=== PATIENT | female | born 1955 | race Caucasian/White ===

== ENCOUNTER 2016-04-18 22:10 | Observation (INO) | payer OTHER ==
[2016-04-18] MEDS ORDERED: methylPREDNISolone SOD SUCCI 125 MG/2 ML VIAL IV STA (22:41)
[2016-04-18] MEDS ORDERED: SODIUM CHLORIDE 0.9% 1,000 ML IV STA (22:41)
[2016-04-18] MEDS ORDERED: IPRATROPIUM-ALBUTEROL 3 ML NEB INHALATION STA (22:41)
[2016-04-18] MEDS ORDERED: HYDROcodone/APAP 5-325MG 1 EACH TAB PO STA (22:42)
--- NOTE | 2016-04-18 22:43 | ED ---
General Adult HPI - General Chief complaint: Shortness of Breath Stated complaint: MATHEW Time Seen by Provider: 04/18/16 22:37 Source: patient, RN notes reviewed Mode of arrival: wheelchair Limitations: no limitations - History of Present Illness Initial comments: Patient is a pleasant 60-year-old female presenting to the emergency Department with complaints of difficulty in breathing. Symptoms started a couple of days ago and have progressively gotten worse. Patient does have cough with occasional white sputum. No fevers. No chest pain. Patient does request some pain medication for her chronic joint pain. Patient has had similar symptoms previously associated with COPD. - Related Data Home Medications Medication Instructions Recorded Confirmed Albuterol Nebulized [Ventolin 2.5 mg INHALATION RT-QID PRN 05/15/14 04/18/16 Nebulized] Calcium Carbonate [Calcium] 600 mg PO BID 05/03/15 04/18/16 Ergocalciferol [Vitamin D2 50,000 unit PO TH 05/03/15 04/18/16 (DRISDOL)] Multivitamins, Thera [Multivitamin] 1 tab PO DAILY 05/03/15 04/18/16 Albuterol Sulfate [Proair Hfa] 1 - 2 puff INHALATION RT-Q6H PRN 01/31/16 Apixaban [Eliquis] 2.5 mg PO BID 01/31/16 04/18/16 Cyanocobalamin [Vitamin B-12] 500 mcg PO DAILY 01/31/16 04/18/16 traZODone HCL 100 mg PO HS PRN 01/31/16 04/18/16 Folic Acid 1 mg PO DAILY 04/18/16 04/18/16 PARoxetine HCL [Paxil] 20 mg PO HS 04/18/16 04/18/16 Previous Rx's Medication Instructions Recorded HYDROcodone/APAP 7.5-325MG [[place] 1 tab PO Q6HR PRN #90 tab 04/04/16 7.5-325] Allergies Allergy/AdvReac Type Severity Reaction Status Date / Time No Known Allergies Allergy Verified 04/18/16 22:58 Review of Systems ROS Statement: Those systems with pertinent positive or pertinent negative responses have been documented in the HPI. ROS Other: All systems not noted in ROS Statement are negative. Constitutional: Denies: fever Eyes: Denies: eye pain ENT: Denies: ear pain Respiratory: Reports: cough, dyspnea Cardiovascular: Denies: chest pain Endocrine: Denies: fatigue Gastrointestinal: Denies: abdominal pain Genitourinary: Denies: dysuria Musculoskeletal: Denies: back pain Skin: Denies: rash Neurological: Denies: headache Past Medical History Past Medical History: Asthma, COPD, GERD/Reflux, Hyperlipidemia, Pneumonia, Pulmonary Embolus (PE), Respiratory Disorder Additional Past Medical History / Comment(s): ARHTRITIS RT HIP, MIGRAINES, left rotator cuff chronic, Osteoporosis History of Any Multi-Drug Resistant Organisms: None Reported Past Surgical History: Appendectomy, Orthopedic Surgery, Tubal Ligation Additional Past Surgical History / Comment(s): RT ANKLE COMPOUND FX/ DISLOCATION HAS X3 SX TO CORRECT, NO METAL LEFT IN PLACE, RT ROTATOR CUFF, RT KNEE BONE FRAGMENT REMOVED. Laser surgery on right rotator cuff., left rotator cuff and bone spur surgery Past Anesthesia/Blood Transfusion Reactions: No Reported Reaction Past Psychological History: Anxiety, Depression Additional Psychological History / Comment(s): NOT CURRENTLY TAKING ANY MEDS FOR LAST 4-5 YEARS. Smoking Status: Current every day smoker Past Alcohol Use History: None Reported Additional Past Alcohol Use History / Comment(s): STARTED SMOKING AT AGE 26, Past Drug Use History: None Reported - Past Family History Brother(s) Family Medical History: Cancer Father Family Medical History: Cancer, Coronary Artery Disease (CAD), Hyperlipidemia Additional Family Medical History / Comment(s): AT AGE 83, BRAIN CA.. AT AGE 81 DID A QUAD BYPASS. Mother Family Medical History: Dementia, Diabetes Mellitus Additional Family Medical History / Comment(s): AT AGE 74 General Exam Limitations: no limitations General appearance: alert, in no apparent distress Head exam: Present: atraumatic Eye exam: Present: normal appearance, PERRL ENT exam: Present: normal oropharynx Neck exam: Present: normal inspection Respiratory exam: Present: wheezes, rhonchi, decreased breath sounds Cardiovascular Exam: Present: regular rate, normal rhythm GI/Abdominal exam: Present: soft. Absent: tenderness Extremities exam: Present: normal inspection. Absent: pedal edema, calf tenderness Neurological exam: Present: alert Psychiatric exam: Present: normal affect, normal mood Skin exam: Absent: rash Course Vital Signs 04/18/16 04/18/16 04/18/16 22:13 22:48 23:07 Temperature 98.2 F Pulse Rate 79 82 Respiratory 18 20 Rate Blood Pressure 132/80 O2 Sat by Pulse 93 L Oximetry 04/18/16 23:15 Temperature Pulse Rate 84 Respiratory Rate Blood Pressure O2 Sat by Pulse Oximetry EKG Findings - EKG Comments: EKG Findings:: Normal sinus rhythm at 68. Normal intervals. Normal axis. normal ST-T. Medical Decision Making - Medical Decision Making Patient reexamined and is somewhat improved. Lungs with continued rhonchi and wheezing. Pulse ox 91-92% on room air. Patient updated on results and plan. Case discussed with Dr. Sheridan, who will admit for Dr. Madrigal. - Lab Data Result diagrams: 04/18/16 22:45 04/18/16 22:45 Lab Results 04/18/16 04/18/16 04/18/16 Range/Units 22:45 22:45 22:45 WBC 4.7 (3.8-10.6) k/uL RBC 4.04 (3.80-5.40) m/uL Hgb 13.5 (11.4-16.0) gm/dL Hct 39.6 (34.0-46.0) % MCV 97.9 (80.0-100.0) fL MCH 33.3 (25.0-35.0) pg MCHC 34.0 (31.0-37.0) g/dL RDW 13.0 (11.5-15.5) % Plt Count 178 (150-450) k/uL Neutrophils % 50 % Lymphocytes % 35 % Monocytes % 7 % Eosinophils % 5 % Basophils % 1 % Neutrophils # 2.3 (1.3-7.7) k/uL Lymphocytes # 1.6 (1.0-4.8) k/uL Monocytes # 0.3 (0-1.0) k/uL Eosinophils # 0.3 (0-0.7) k/uL Basophils # 0.1 (0-0.2) k/uL PT (9.0-12.0) sec INR (<1.1) APTT (22.0-30.0) sec Sodium 130 L (137-145) mmol/L Potassium 4.6 (3.5-5.1) mmol/L Chloride 94 L (98-107) mmol/L Carbon Dioxide 24 (22-30) mmol/L Anion Gap 12 mmol/L BUN 9 (7-17) mg/dL Creatinine 0.72 (0.52-1.04) mg/dL Est GFR (MDRD) Af Amer >60 (>60 ml/min/1.73 sqM) Est GFR (MDRD) Non-Af >60 (>60 ml/min/1.73 sqM) Glucose 87 (74-99) mg/dL Calcium 9.1 (8.4-10.2) mg/dL Total Bilirubin 0.4 (0.2-1.3) mg/dL AST 23 (14-36) U/L ALT 27 (9-52) U/L Alkaline Phosphatase 39 (38-126) U/L Total Creatine Kinase 94 (30-135) U/L CK-MB (CK-2) 2.5 H* (0.0-2.4) ng/mL CK-MB (CK-2) Rel Index 2.7 Troponin I <0.012 (0.000-0.034) ng/mL Total Protein 6.4 (6.3-8.2) g/dL Albumin 4.4 (3.5-5.0) g/dL 04/18/16 Range/Units 22:45 WBC (3.8-10.6) k/uL RBC (3.80-5.40) m/uL Hgb (11.4-16.0) gm/dL Hct (34.0-46.0) % MCV (80.0-100.0) fL MCH (25.0-35.0) pg MCHC (31.0-37.0) g/dL RDW (11.5-15.5) % Plt Count (150-450) k/uL Neutrophils % % Lymphocytes % % Monocytes % % Eosinophils % % Basophils % % Neutrophils # (1.3-7.7) k/uL Lymphocytes # (1.0-4.8) k/uL Monocytes # (0-1.0) k/uL Eosinophils # (0-0.7) k/uL Basophils # (0-0.2) k/uL PT 10.9 (9.0-12.0) sec INR 1.1 (<1.1) APTT 28.8 (22.0-30.0) sec Sodium (137-145) mmol/L Potassium (3.5-5.1) mmol/L Chloride (98-107) mmol/L Carbon Dioxide (22-30) mmol/L Anion Gap mmol/L BUN (7-17) mg/dL Creatinine (0.52-1.04) mg/dL Est GFR (MDRD) Af Amer (>60 ml/min/1.73 sqM) Est GFR (MDRD) Non-Af (>60 ml/min/1.73 sqM) Glucose (74-99) mg/dL Calcium (8.4-10.2) mg/dL Total Bilirubin (0.2-1.3) mg/dL AST (14-36) U/L ALT (9-52) U/L Alkaline Phosphatase (38-126) U/L Total Creatine Kinase (30-135) U/L CK-MB (CK-2) (0.0-2.4) ng/mL CK-MB (CK-2) Rel Index Troponin I (0.000-0.034) ng/mL Total Protein (6.3-8.2) g/dL Albumin (3.5-5.0) g/dL - Radiology Data Interpreted by me: Chest x-ray interpreted by myself shows hyperinflation without evidence of acute infiltrate. Disposition Clinical Impression: Acute exacerbation of chronic obstructive airways disease Disposition: ADMITTED IP TO THIS HOSP
[2016-04-18 22:51] LABS: Basophils # (A) 0.1 k/uL (0-0.2); Basophils % (A) 1 %; CH 34.2; Eosinophils # (A) 0.3 k/uL (0-0.7); Eosinophils % (A) 5 %; HCT 39.6 % (34.0-46.0); HDW 2.24; HGB 13.5 gm/dL (11.4-16.0); Luc # (Auto) 0.08; Luc % (Auto) 2; Lymphocytes # (A) 1.6 k/uL (1.0-4.8); Lymphocytes % (A) 35 %; MCH 33.3 pg (25.0-35.0); MCV 97.9 fL (80.0-100.0); Mean Platelet Volume 7.2; Monocytes # (A) 0.3 k/uL (0-1.0); Monocytes % (A) 7 %; Neutrophils # (A) 2.3 k/uL (1.3-7.7); Neutrophils % (A) 50 %; RBC 4.04 m/uL (3.80-5.40); WBC 4.7 k/uL (3.8-10.6); WBC (Perox) 4.73
[2016-04-18 23:01] LABS: ALT 27 U/L (9-52); AST 23 U/L (14-36); Alkaline Phosphatase 39 U/L (38-126); Anion Gap 12 mmol/L; Blood Urea Nitrogen 9 mg/dL (7-17); Calcium 9.1 mg/dL (8.4-10.2); Carbon Dioxide 24 mmol/L (22-30); Chloride 94 mmol/L (98-107); Glucose 87 mg/dL (74-99); Non-African American GFR(MDRD) >60 (>60 ml/min/1.73 sqM); Potassium 4.6 mmol/L (3.5-5.1); Sodium 130 mmol/L (137-145); Total Bilirubin 0.4 mg/dL (0.2-1.3); Total Protein 6.4 g/dL (6.3-8.2)
[2016-04-18 23:04] LABS: INR 1.1 (<1.1); Partial Thromboplastin Time 28.8 sec (22.0-30.0); Prothrombin Time 10.9 sec (9.0-12.0)
[2016-04-18 23:15] LABS: Creatine Kinase 94 U/L (30-135)
[2016-04-18] MEDS ORDERED: SODIUM CHLORIDE 0.9% 250 ML IV STA (23:20)
[2016-04-18 23:28] LABS: Troponin I <0.012 ng/mL (0.000-0.034)
[2016-04-18 23:38] LABS: Creatine Kinase MB 2.5 ng/mL (0.0-2.4)
[2016-04-19] MEDS ORDERED: IPRATROPIUM-ALBUTEROL 3 ML NEB INHALATION PRN (00:03)
[2016-04-19] MEDS ORDERED: traZODone HCL 100 MG TAB PO PRN (00:05)
[2016-04-19 01:04] VITALS: RESP 16
--- NOTE | 2016-04-19 02:15 | XR ---
EXAMINATION TYPE: XR chest 2V DATE OF EXAM: 04/18/2016 11:26 PM COMPARISON: 02/27/2016 HISTORY: Difficulty in breathing cough COPD asthma TECHNIQUE: Frontal and lateral views of the chest are obtained. FINDINGS: There is hyperinflation of lungs. There is no focal air space opacity, pleural effusion, or pneumoth orax seen. The cardiac silhouette size is within normal limits. Atherosclerotic calcification in the aortic arch. The osseous structures are intact. IMPRESSION: 1. No active lung infiltrates. 2. Chronic lung changes. 3. No significant interval change.
[2016-04-19] MEDS: HYDROcodone/APAP 7.5-325MG 1 EACH TAB PO PRN ×2 (04:16→10:31)
[2016-04-19] MEDS: methylPREDNISolone SOD SUCCI 125 MG/2 ML VIAL IV SCH ×2 (05:29→12:58)
[2016-04-19 07:17] LABS: Glucose,Whole Blood 122 mg/dL (75-99)
[2016-04-19] MEDS: IPRATROPIUM-ALBUTEROL 3 ML NEB INHALATION SCH ×2 (07:33→11:02)
[2016-04-19 07:48] VITALS: BP 128/84; TEMP 97.2
[2016-04-19] MEDS ORDERED: APIXABAN 2.5 MG TABLET PO SCH (09:00)
[2016-04-19 11:05] VITALS: PULSE 80
[2016-04-19 12:21] VITALS: BMI 16.2
[2016-04-19 12:39] LABS: Glucose,Whole Blood 132 mg/dL (75-99)
[2016-04-19] MEDS ORDERED: PARoxetine 20 MG TAB PO SCH (21:00)
--- NOTE | 2016-04-19 23:33 | P.HPIM ---
History of Present Illness H&P Date: 04/19/16 (DC summary as well) Chief Complaint: Difficulty breathing 60-year-old female with history of tobacco use and currently ongoing tobacco use comes into the hospital with difficulty in breathing for a week prior to admission. Patient stated that she noted initially a cough that progressively got worse over has been productive in nature with yellowish fluid phlegm. Patient was only using albuterol inhaler at home. Patient still smokes about 1- 2 cigarettes at home. Patient has never seen a director industrial nursing and was actually referred to Dr. Betancourt by the patient's primary care physician. Patient denies having any recent sick contacts does not recall have an influenza vaccine. Has not traveled in the recent times. At the time of my examination patient states that she has some difficulty breathing however is able to ambulate or 100 feet without any difficulty. Patient does have a cough however is not limiting her positionally or in regards to conversation. Review of Systems All systems: negative (Noted in HPI) Past Medical History Past Medical History: Asthma, COPD, GERD/Reflux, Hyperlipidemia, Pneumonia, Pulmonary Embolus (PE), Respiratory Disorder Additional Past Medical History / Comment(s): ARHTRITIS RT HIP, MIGRAINES, left rotator cuff chronic, Osteoporosis History of Any Multi-Drug Resistant Organisms: None Reported Past Surgical History: Appendectomy, Orthopedic Surgery, Tubal Ligation Additional Past Surgical History / Comment(s): RT ANKLE COMPOUND FX/ DISLOCATION HAS X3 SX TO CORRECT, NO METAL LEFT IN PLACE, RT ROTATOR CUFF, RT KNEE BONE FRAGMENT REMOVED. Laser surgery on right rotator cuff., left rotator cuff and bone spur surgery Past Anesthesia/Blood Transfusion Reactions: No Reported Reaction Past Psychological History: Anxiety, Depression Additional Psychological History / Comment(s): NOT CURRENTLY TAKING ANY MEDS FOR LAST 4-5 YEARS. Smoking Status: Former smoker Past Alcohol Use History: None Reported Additional Past Alcohol Use History / Comment(s): STARTED SMOKING AT AGE 26, Past Drug Use History: None Reported - Past Family History Brother(s) Family Medical History: Cancer Father Family Medical History: Cancer, Coronary Artery Disease (CAD), Hyperlipidemia Additional Family Medical History / Comment(s): AT AGE 83, BRAIN CA.. AT AGE 81 DID A QUAD BYPASS. Mother Family Medical History: Dementia, Diabetes Mellitus Additional Family Medical History / Comment(s): AT AGE 74 Medications and Allergies Home Medications Medication Instructions Recorded Confirmed Type Calcium Carbonate [Calcium] 600 mg PO BID 05/03/15 04/18/16 History Ergocalciferol [Vitamin D2 50,000 unit PO TH 05/03/15 04/18/16 History (DRISDOL)] Multivitamins, Thera [Multivitamin] 1 tab PO DAILY 05/03/15 04/18/16 History Apixaban [Eliquis] 2.5 mg PO BID 01/31/16 04/18/16 History Cyanocobalamin [Vitamin B-12] 500 mcg PO DAILY 01/31/16 04/18/16 History traZODone HCL 100 mg PO HS PRN 01/31/16 04/18/16 History Folic Acid 1 mg PO DAILY 04/18/16 04/18/16 History PARoxetine HCL [Paxil] 20 mg PO HS 04/18/16 04/18/16 History Allergies Allergy/AdvReac Type Severity Reaction Status Date / Time No Known Allergies Allergy Verified 04/18/16 22:58 Physical Exam Vitals: Vital Signs Temp Pulse Pulse Resp BP BP Pulse Ox 04/19/16 11:14 80 04/19/16 11:02 80 04/19/16 07:47 76 04/19/16 07:33 76 04/19/16 07:00 97.2 F L 62 16 128/84 94 L 04/19/16 01:01 97.9 F 64 16 134/74 100 04/19/16 00:08 97.9 F 70 18 114/80 98 Intake and Output 04/19/16 04/19/16 04/20/16 14:59 22:59 06:59 Other: Weight 47.174 kg Patient Weight 04/20/16 06:59 Weight 47.174 kg Exam Lungs good air entry trace wheezing appreciated no rhonchi appreciated good air movement Heart S1-S2 heart regular rate and rhythm no murmurs appreciated Abdomen is soft nontender no organomegaly Neurologically no focal motor or sensory deficits noted Pupils equal round and reactive light and accommodation neck is supple no JVD Results CBC & Chem 7: 04/18/16 22:45 04/18/16 22:45 Labs: Abnormal Lab Results - Last 24 Hours (Table) 04/19/16 04/19/16 Range/Units 07:15 12:37 POC Glucose (mg/dL) 122 H 132 H (75-99) mg/dL Thrombosis Risk Factor Assmnt - Choose All That Apply Any of the Below Risk Factors Present?: Yes Each Factor Represents 1 point: Abnormal pulmonary function (COPD), Age 41-60 years Other Risk Factors: Yes Each Risk Factor Represents 3 Points: History of DVT/PE Other congenital or acquired thrombophilia - If yes, enter type in comment: No Thrombosis Risk Factor Assessment Total Risk Factor Score: 5 Thrombosis Risk Factor Assessment Level: High Risk Assessment and Plan Plan: #1 mild to moderate exacerbation of COPD which needs to be appropriately diagnosed with pulmonary function tests. #2 history of pulmonary embolism #3 ongoing tobacco use. #4 history of hypertension #5 dyslipidemia Plan Patient was ambulated by me over 100 feet did not note any difficulty breathing. No desaturation is noted. Patient is recommended to follow up with Dr. Betancourt within next week. Patient will be discharged on a course of doxycycline, burst of prednisone for the next week, albuterol, Symbicort inhaler. Patient will benefit from having outpatient PFTs thereafter. This is a discharge summary as well.
== END 2016-04-19 14:50 | disposition home or self-care (01) ==
LOC: EC 22:10 → 4MS4W 04-19 00:02 → INTOOBSV 04-19 00:02
PROVIDERS: ADMIT Internal Medicine; ATTEND Internal Medicine
DX: J44.1 Chronic obstructive pulmonary disease with (acute) exacerbation (principal); F17.210 Nicotine dependence, cigarettes, uncomplicated; I10 Essential (primary) hypertension; E78.5 Hyperlipidemia, unspecified; F32.9 Major depressive disorder, single episode, unspecified; F41.9 Anxiety disorder, unspecified; G89.29 Other chronic pain; J45.909 Unspecified asthma, uncomplicated; K21.9 Gastro-esophageal reflux disease without esophagitis; M81.0 Age-related osteoporosis without current pathological fracture; G43.909 Migraine, unspecified, not intractable, without status migrainosus; M16.11 Unilateral primary osteoarthritis, right hip; Z86.711 Personal history of pulmonary embolism; Z79.01 Long term (current) use of anticoagulants; Z79.899 Other long term (current) drug therapy; Z83.3 Family history of diabetes mellitus; Z82.49 Family history of ischemic heart disease and other diseases of the circulatory system
CPT/HCPCS: 96361 ×3; 96374 ×2; 99285 ×2; 36415; 94640 ×3; 93005; 80053; 82550; 82553; 84484; 85025; 85610; 85730; 71020; G0378; J2930 ×2; 96376

== ENCOUNTER 2016-04-26 18:10 | Emergency (ER) | payer OTHER ==
[2016-04-26 18:55] VITALS: BP 118/77; PULSE 77; RESP 20; TEMP 98.2
[2016-04-26] MEDS ORDERED: HYDROmorphone 1 MG/ML 1 ML SYRINGE IM STA (19:58)
[2016-04-26] MEDS ORDERED: ACETAMINOPHEN TAB 500 MG TAB PO STA (20:00)
--- NOTE | 2016-04-26 20:00 | ED ---
General Adult HPI - General Chief complaint: Extremity Injury, Upper Stated complaint: LEFT SHOULDER, RT LEG, BACK PAIN Time Seen by Provider: 04/26/16 19:49 Source: patient Mode of arrival: wheelchair Limitations: no limitations - History of Present Illness Initial comments: This 60-year-old white female presents complaining of left shoulder pain. She has had this chronically. She had surgery on her left shoulder approximate 10 months ago. She denies any new injuries. She sees Dr. Tobar from orthopedics. She states that she cannot get in to see him for another month. She has had pain ever since her surgery and prior. She has done some minimal lifting. She was taking [place] but has not taken any in the past 3 weeks. She has utilize a sling at times. She states that she cannot take ibuprofen as she is on a blood thinner. She has tried Tylenol at times without much relief. She 's gone through physical therapy in the past. She has not followed up with her primary physician in this regard. She has not followed up with pain management. No other complaints or modifying factors. - Related Data Home Medications Medication Instructions Recorded Confirmed Calcium Carbonate [Calcium] 600 mg PO BID 05/03/15 04/26/16 Ergocalciferol [Vitamin D2 50,000 unit PO TH 05/03/15 04/26/16 (DRISDKAYLEIGH)] Multivitamins, Thera [Multivitamin] 1 tab PO DAILY 05/03/15 04/26/16 Apixaban [Eliquis] 2.5 mg PO BID 01/31/16 04/26/16 Cyanocobalamin [Vitamin B-12] 500 mcg PO DAILY 01/31/16 04/26/16 traZODone HCL 100 mg PO HS PRN 01/31/16 04/26/16 Folic Acid 1 mg PO DAILY 04/18/16 04/26/16 PARoxetine HCL [Paxil] 20 mg PO HS 04/18/16 04/26/16 Previous Rx's Medication Instructions Recorded Albuterol Nebulized [Ventolin 2.5 mg INHALATION RT-QID PRN 30 04/19/16 Nebulized] Days Albuterol Sulfate [Proair Hfa] 1 - 2 puff INHALATION RT-Q6H PRN 04/19/16 #1 hfa.[email or web address].[email or web address] Doxycycline Hyclate 100 mg PO BID #10 tab 04/19/16 Ipratropium-Albuterol Nebulize 3 ml INHALATION RT-Q4H PRN #2 04/19/16 [Duoneb 0.5 mg-3 mg/3 ml Soln] ampul.neb traMADol HCl [Ultram] 50 - 100 mg PO Q6H PRN #8 tab 04/26/16 Allergies Allergy/AdvReac Type Severity Reaction Status Date / Time No Known Allergies Allergy Verified 04/26/16 19:22 Review of Systems ROS Statement: Those systems with pertinent positive or pertinent negative responses have been documented in the HPI. ROS Other: All systems not noted in ROS Statement are negative. Past Medical History Past Medical History: Asthma, COPD, GERD/Reflux, Hyperlipidemia, Pneumonia, Pulmonary Embolus (PE), Respiratory Disorder Additional Past Medical History / Comment(s): ARHTRITIS RT HIP, MIGRAINES, left rotator cuff chronic, Osteoporosis History of Any Multi-Drug Resistant Organisms: None Reported Past Surgical History: Appendectomy, Orthopedic Surgery, Tubal Ligation Additional Past Surgical History / Comment(s): RT ANKLE COMPOUND FX/ DISLOCATION HAS X3 SX TO CORRECT, NO METAL LEFT IN PLACE, RT ROTATOR CUFF, RT KNEE BONE FRAGMENT REMOVED. Laser surgery on right rotator cuff., left rotator cuff and bone spur surgery Past Anesthesia/Blood Transfusion Reactions: No Reported Reaction Past Psychological History: Anxiety, Depression Additional Psychological History / Comment(s): NOT CURRENTLY TAKING ANY MEDS FOR LAST 4-5 YEARS. Smoking Status: Former smoker Past Alcohol Use History: None Reported Additional Past Alcohol Use History / Comment(s): STARTED SMOKING AT AGE 26, Past Drug Use History: None Reported - Past Family History Brother(s) Family Medical History: Cancer Father Family Medical History: Cancer, Coronary Artery Disease (CAD), Hyperlipidemia Additional Family Medical History / Comment(s): AT AGE 83, BRAIN CA.. AT AGE 81 DID A QUAD BYPASS. Mother Family Medical History: Dementia, Diabetes Mellitus Additional Family Medical History / Comment(s): AT AGE 74 General Exam - General Exam Comments Initial Comments: GENERAL: The patient is well nourished and well hydrated. VITAL SIGNS: Heart rate, blood pressure, respiratory rate reviewed as recorded in nurse's notes. EYES: Pupils are round and reactive. Extraocular movements are intact. No conjunctival / lid redness or swelling. ENT: No external evidence of injury, swelling, or ecchymosis. Airway is patent. Throat is clear. NECK: Nontender. No swelling or evidence of injury. No subcutaneous emphysema. Trachea is midline. No thyroid mass. HEART: Regular rate and rhythm. Good peripheral pulses. LUNGS/CHEST: Breath sounds clear and equal bilaterally. No rales, rhonchi, or wheezes. No ecchymosis, subcutaneous emphysema, or tenderness. ABDOMEN: Abdomen soft without tenderness. No palpable masses or organomegaly. No peritoneal signs. No abdominal wall swelling or ecchymosis. EXTREMITIES: There is mild tenderness diffusely to the left shoulder. There is no swelling. There is pain with any degree of movement of her left shoulder. This is much decreased if distracted. Normal muscle tone and function. No thoracolumbar tenderness. NEUROLOGIC: Sensation is grossly intact. Cranial nerve exam reveals face is symmetrical, tongue is midline, speech is clear. SKIN: No abrasions or ecchymosis is noted. No induration or masses noted. PSYCHIATRIC: Alert and oriented. Appropriate behavior and judgment. Limitations: no limitations Course Vital Signs 04/26/16 18:53 Temperature 98.2 F Pulse Rate 77 Respiratory 20 Rate Blood Pressure 118/77 O2 Sat by Pulse 98 Oximetry Medical Decision Making - Medical Decision Making The patient was seen and examined. It appears that she has a chronic pain condition and she is informed that she should be following up with her primary physician for chronic pain issues and if not then she should see a chronic pain management physician. She states that she has difficulty seeing specialists due to insurance reasons. She states that she needs something now for the pain as it is severe. I order her Dilaudid intramuscularly. The nurse asks her if she has a ride and the patient says that she has a ride. The nurse relates to her that they must physically see the person present in the room prior to giving the narcotic. Upon knowing this, the patient relates that she does not have a ride. The Dilaudid is canceled due to the patient lying to us and it is felt as though she may have some culture motives in regard to pain and drug- seeking. I do order 1000 mg of Tylenol orally. It is reinforced that she is not to come to the emergency department for chronic pain issues. Disposition Clinical Impression: Chronic left shoulder pain Disposition: HOME SELF-CARE Condition: Good Prescriptions: traMADol HCl [Ultram] 50 - 100 mg PO Q6H PRN #8 tab PRN Reason: Pain Referrals: Ravindra Damon MD [Primary Care Provider] - 1-2 days Time of Disposition: 20:04
--- NOTE | 2016-04-26 20:06 | ED ---
Disposition Clinical Impression: Chronic left shoulder pain Disposition: HOME SELF-CARE Condition: Good Instructions: Chronic Pain (ED) Prescriptions: traMADol HCl [Ultram] 50 - 100 mg PO Q6H PRN #8 tab PRN Reason: Pain Referrals: Raivndra Damon MD [Primary Care Provider] - 1-2 days
== END 2016-04-26 20:32 | disposition home or self-care (01) ==
LOC: EC 18:10
DX: G89.29 Other chronic pain (principal); M25.512 Pain in left shoulder; F41.9 Anxiety disorder, unspecified; F32.9 Major depressive disorder, single episode, unspecified; Z79.01 Long term (current) use of anticoagulants; Z86.711 Personal history of pulmonary embolism; Z87.891 Personal history of nicotine dependence; Z79.899 Other long term (current) drug therapy
CPT/HCPCS: 99283

== ENCOUNTER 2016-04-27 17:10 | Emergency (ER) | payer OTHER ==
[2016-04-27 17:17] VITALS: TEMP 98.3
--- NOTE | 2016-04-27 17:41 | ED ---
General Adult HPI - General Chief complaint: Extremity Problem,Nontraumatic Stated complaint: left shoulder pain Time Seen by Provider: 04/27/16 17:28 Source: patient, EMS, RN notes reviewed Mode of arrival: EMS Limitations: no limitations - History of Present Illness Initial comments: 60-year-old female presents emergency Department with chronic pain. Patient states she has pain all over but greatest on left shoulder, low back. Patient states that she has chronic shoulder pain in which she's had surgery by Dr. Tobar. Patient was seen here in emergency department yesterday for pain medication was given tramadol. Patient states that she does see pain management here. Patient states that she also has been taken narcotics in the past for chronic pain. Patient denies any trauma. Patient states that she has low back pain which she's had in the past. She states that she was being worked up for this by pain management. Patient denies bowel, bladder incontinence or retention. Denies any saddle anesthesias or lower sure paresthesias. Patient states that she felt like her leg was negative elbow she is able to ambulate with no difficulty. Patient denies any focal weakness. Denies any headache, dizziness, blurred vision, chest pain or shortness breath. Patient has no other complaints. - Related Data Home Medications Medication Instructions Recorded Confirmed Calcium Carbonate [Calcium] 600 mg PO BID 05/03/15 04/27/16 Ergocalciferol [Vitamin D2 50,000 unit PO TH 05/03/15 04/27/16 (DRISDOL)] Multivitamins, Thera [Multivitamin] 1 tab PO DAILY 05/03/15 04/27/16 Apixaban [Eliquis] 2.5 mg PO BID 01/31/16 04/27/16 Cyanocobalamin [Vitamin B-12] 500 mcg PO DAILY 01/31/16 04/27/16 traZODone HCL 100 mg PO HS PRN 01/31/16 04/27/16 Folic Acid 1 mg PO DAILY 04/18/16 04/27/16 PARoxetine HCL [Paxil] 20 mg PO HS 04/18/16 04/27/16 Albuterol Sulfate [Proair Hfa] 2 puff INHALATION RT-Q6H PRN 04/27/16 04/27/16 Previous Rx's Medication Instructions Recorded Ipratropium-Albuterol Nebulize 3 ml INHALATION RT-Q4H PRN #2 04/19/16 [Duoneb 0.5 mg-3 mg/3 ml Soln] ampul.neb Allergies Allergy/AdvReac Type Severity Reaction Status Date / Time No Known Allergies Allergy Verified 04/27/16 17:44 Review of Systems ROS Statement: Those systems with pertinent positive or pertinent negative responses have been documented in the HPI. ROS Other: All systems not noted in ROS Statement are negative. Past Medical History Past Medical History: Asthma, COPD, GERD/Reflux, Hyperlipidemia, Pneumonia, Pulmonary Embolus (PE), Respiratory Disorder Additional Past Medical History / Comment(s): ARHTRITIS RT HIP, MIGRAINES, left rotator cuff chronic, Osteoporosis History of Any Multi-Drug Resistant Organisms: None Reported Past Surgical History: Appendectomy, Orthopedic Surgery, Tubal Ligation Additional Past Surgical History / Comment(s): RT ANKLE COMPOUND FX/ DISLOCATION HAS X3 SX TO CORRECT, NO METAL LEFT IN PLACE, RT ROTATOR CUFF, RT KNEE BONE FRAGMENT REMOVED. Laser surgery on right rotator cuff., left rotator cuff and bone spur surgery Past Anesthesia/Blood Transfusion Reactions: No Reported Reaction Past Psychological History: Anxiety, Depression Additional Psychological History / Comment(s): NOT CURRENTLY TAKING ANY MEDS FOR LAST 4-5 YEARS. Smoking Status: Former smoker Past Alcohol Use History: None Reported Additional Past Alcohol Use History / Comment(s): STARTED SMOKING AT AGE 26, Past Drug Use History: None Reported - Past Family History Brother(s) Family Medical History: Cancer Father Family Medical History: Cancer, Coronary Artery Disease (CAD), Hyperlipidemia Additional Family Medical History / Comment(s): AT AGE 83, BRAIN CA.. AT AGE 81 DID A QUAD BYPASS. Mother Family Medical History: Dementia, Diabetes Mellitus Additional Family Medical History / Comment(s): AT AGE 74 General Exam Limitations: no limitations General appearance: alert, in no apparent distress Neck exam: Present: normal inspection, full ROM. Absent: tenderness, meningismus, lymphadenopathy Respiratory exam: Present: normal lung sounds bilaterally. Absent: respiratory distress, wheezes, rales, rhonchi, stridor Cardiovascular Exam: Present: regular rate, normal rhythm, normal heart sounds. Absent: systolic murmur, diastolic murmur, rubs, gallop, clicks GI/Abdominal exam: Present: soft, normal bowel sounds. Absent: distended, tenderness, guarding, rebound, rigid Extremities exam: Present: other (Left shoulder slight decreased range of motion which is chronic., Neurovascular intact equal strength There is surgical scars noted. Lower extremity strength equal bilaterally neurovascular intact) Back exam: Present: full ROM, tenderness (Minimal left lower ), paraspinal tenderness, other (Normal lower extremity strength normal straight leg raise ). Absent: vertebral tenderness Neurological exam: Present: alert, oriented X3, CN II-XII intact, reflexes normal. Absent: motor sensory deficit Course Vital Signs 04/27/16 04/27/16 17:15 19:10 Temperature 98.3 F 98.3 F Pulse Rate 77 61 Respiratory 19 16 Rate Blood Pressure 124/73 126/69 O2 Sat by Pulse 94 L 100 Oximetry Medical Decision Making - Medical Decision Making 60-year-old female presented for chronic pain. Patient's medical records thoroughly reviewed. Patient's was initially was reviewed and the patient was found to be seeking medication. Patient was given Tylenol, tramadol upon discharge. Patient requested multiple rounds of narcotic pain medications. I did initially aspiration on initial interview if she took any pain medicines. She states that she didn't. Patient's maps does show that she felt 90 tablets of Isabella approximately 20 days ago. Patient states that she has taken all his pain medications and she now states that she is not here for pain meds. Patient has a chronic condition which she states is chronic and she's had no injuries. Patient has chronic left shoulder pain which she sees Dr. Tobar for. She states that she has back pain. Patient x-ray showed no acute abnormality. I did explain that she may need physical therapy which he'll be written by her primary care physician or orthopedist surgeon. She agrees this plan patient will be discharged with no further pain medications Disposition Clinical Impression: Chronic left shoulder pain, Chronic pain, Back pain Disposition: HOME SELF-CARE Condition: Stable Instructions: Chronic Pain (ED) Additional Instructions: Follow-up with your primary care physician, orthopedic surgeon or pain management as directed.Please return to the Emergency Department if symptoms worsen or any other concerns. Time of Disposition: 19:19
--- NOTE | 2016-04-27 18:51 | XR ---
EXAMINATION TYPE: XR lumbosacral spine min 4V DATE OF EXAM: 04/27/2016 6:21 PM COMPARISON: February 27, 2016 HISTORY: Pain, worse on the left TECHNIQUE: 5 views FINDINGS: There is no spinal malalignment. There is no scoliosis. There is mild/moderate multilevel d egenerative facet change and mild multilevel degenerative disc change. No focal bony lesions. The salbador tebral segments height are all maintained. No incidental soft tissue findings. IMPRESSION: No acute process.
[2016-04-27 19:11] VITALS: BP 126/69; PULSE 61; RESP 16
== END 2016-04-27 19:25 | disposition home or self-care (01) ==
LOC: EC 17:10
DX: G89.29 Other chronic pain (principal); M25.512 Pain in left shoulder; M54.5 Low back pain; F41.9 Anxiety disorder, unspecified; F32.9 Major depressive disorder, single episode, unspecified; Z86.711 Personal history of pulmonary embolism; Z79.01 Long term (current) use of anticoagulants; Z79.899 Other long term (current) drug therapy; Z87.891 Personal history of nicotine dependence
CPT/HCPCS: 72110; 99284

== ENCOUNTER 2016-05-01 17:46 | Emergency (ER) | payer OTHER ==
[2016-05-01 17:57] VITALS: RESP 16
--- NOTE | 2016-05-01 18:36 | ED ---
General Adult HPI - General Chief complaint: Fall Stated complaint: Fall Time Seen by Provider: 05/01/16 18:02 Source: patient, EMS, RN notes reviewed, old records reviewed Mode of arrival: ambulatory Limitations: no limitations - History of Present Illness Initial comments: Chief complaint and history of present illness a 60-year-old female here because she's afraid of the fact that she is also much weight, she has alcohol problems chronic pain medication problems. States today when she woke up she had tingling to her feet bilaterally. Within the hour after eating and getting around or moving the tingling goes away. She says that she stood up today and felt as though she couldn't stop stay up because the tingling and then the tingling improved but she fell to the floor. States she may have bumped her head she is on L Oquist because of a PE. The patient then said she is depressed and suicidal. The psychiatric nurse. - Related Data Home Medications Medication Instructions Recorded Confirmed Calcium Carbonate [Calcium] 600 mg PO BID 05/03/15 05/01/16 Ergocalciferol [Vitamin D2 50,000 unit PO TH 05/03/15 05/01/16 (DRISDOL)] Multivitamins, Thera [Multivitamin] 1 tab PO DAILY 05/03/15 05/01/16 Apixaban [Eliquis] 2.5 mg PO BID 01/31/16 05/01/16 Cyanocobalamin [Vitamin B-12] 500 mcg PO DAILY 01/31/16 05/01/16 traZODone HCL 100 mg PO HS PRN 01/31/16 05/01/16 Folic Acid 1 mg PO DAILY 04/18/16 05/01/16 PARoxetine HCL [Paxil] 20 mg PO HS 04/18/16 05/01/16 Albuterol Sulfate [Proair Hfa] 2 puff INHALATION RT-Q6H PRN 04/27/16 05/01/16 Previous Rx's Medication Instructions Recorded Ipratropium-Albuterol Nebulize 3 ml INHALATION RT-Q4H PRN #2 04/19/16 [Duoneb 0.5 mg-3 mg/3 ml Soln] ampul.neb Allergies Allergy/AdvReac Type Severity Reaction Status Date / Time No Known Allergies Allergy Verified 05/01/16 18:31 Review of Systems ROS Statement: Those systems with pertinent positive or pertinent negative responses have been documented in the HPI. Review of systems. No complaint of headache or visual acuity changes. No complaint of neck pain but she said that she did possibly bump her head no bruises noted. Denying any chest pain she has chronic left shoulder pain she's had surgery on that shoulder. Denies being short of breath does have a history of COPD and a smoker. No complaint of any pelvic pain. On-again off-again tingling to her feet currently gone. Able to move her feet legs and upper extremities. Answering questions appropriately. Seems depressed because of her problems with alcohol she did drink today but initially denied and also states that her daughter threw away her prescription for pain pills and hopes to help her. Patient was here seeking medications in the last several days. Past medical problems significant for COPD, GERD, hyperlipidemia, pneumonia, PE on L Oquist, arthritis and hip area. Surgeries left shoulder rotator cuff, Fracture Repair Right Ankle. Bilateral Tubal Ligation, Appendectomy. Family History Multiple Cancers her brother and father both had brain cancer. Other members of that cirrhosis and Alzheimer's. Patient denies any ALLERGIES. Initially denied drinking any alcohol and admitted to drinking alcohol today and states she's not alcoholic and needs help. Patient smokes. Also states she is addicted to pain medications ROS Other: All systems not noted in ROS Statement are negative. Past Medical History Past Medical History: Asthma, COPD, GERD/Reflux, Hyperlipidemia, Pneumonia, Pulmonary Embolus (PE), Respiratory Disorder Additional Past Medical History / Comment(s): ARHTRITIS RT HIP, MIGRAINES, left rotator cuff chronic, Osteoporosis History of Any Multi-Drug Resistant Organisms: None Reported Past Surgical History: Appendectomy, Orthopedic Surgery, Tubal Ligation Additional Past Surgical History / Comment(s): RT ANKLE COMPOUND FX/ DISLOCATION HAS X3 SX TO CORRECT, NO METAL LEFT IN PLACE, RT ROTATOR CUFF, RT KNEE BONE FRAGMENT REMOVED. Laser surgery on right rotator cuff., left rotator cuff and bone spur surgery Past Anesthesia/Blood Transfusion Reactions: No Reported Reaction Past Psychological History: Anxiety, Bipolar, Depression Additional Psychological History / Comment(s): NOT CURRENTLY TAKING ANY MEDS FOR LAST 4-5 YEARS. Smoking Status: Current every day smoker Past Alcohol Use History: None Reported Additional Past Alcohol Use History / Comment(s): STARTED SMOKING AT AGE 26, Past Drug Use History: None Reported - Past Family History Brother(s) Family Medical History: Cancer Father Family Medical History: Cancer, Coronary Artery Disease (CAD), Hyperlipidemia Additional Family Medical History / Comment(s): AT AGE 83, BRAIN CA.. AT AGE 81 DID A QUAD BYPASS. Mother Family Medical History: Dementia, Diabetes Mellitus Additional Family Medical History / Comment(s): AT AGE 74 General Exam - General Exam Comments Initial Comments: General: The patient is awake and alert, states she is depressed and a near suicidal. States she is an alcoholic and has trouble with narcotics. States her feet were tingling and she fell. She is given pain medication en route. States she wants help. Vital signs show temperature 98.7 pulse 75 respiratory rate 16 also ask 96% room air blood pressure 124/74. Minimally elevated systolic noted patient will be following up with a physician in the next week. Patient is extremely thin weighing approximately 92 pounds Eye: Pupils are equal, round and reactive to light, extra-ocular movements are intact ; there is normal conjunctiva bilaterally. No signs of icterus. Ears, nose, mouth and throat: States she bumped her head no apparent loss of consciousness no bruising or pain found on the head. There are moist mucous membranes. Neck: Denies significant neck pain but she states she did bump her head. She is on L Oquist for pulmonary embolus. Cardiovascular: There is a regular rate and rhythm. No murmur, rub or gallop is appreciated. Respiratory: Lungs are clear to auscultation, respirations are non-labored, breath sounds are equal. No wheezes, stridor, rales, or rhonchi. Gastrointestinal: Soft, non-distended, non-tender abdomen . There is no rebound or guarding present. No CVA tenderness. Bowel sounds are unremarkable. Back: Reports chronic back pain. Denies any new back pain with the fall today. Musculoskeletal: Normal ROM, no tenderness, There is no pedal edema. There is no calf tenderness or swelling. Able wiggle her toes move her ankles neurovascular status appears to be intact of the foot. Tingling comes and goes currently gone. Neurological: CN II-XII intact, There are no obvious motor or sensory deficits. Coordination appears grossly intact. Speech is normal. Reports on-again off-again tingling to her feet. Usually after she eats it goes away. Skin: Skin is warm and dry and no rashes or lesions are noted. Pale Psychiatric: History depression and anxiety. Initially denied alcohol use and then stated that she is not alcoholic. Limitations: no limitations Course Vital Signs 05/01/16 05/01/16 17:47 20:59 Temperature 98.7 F Pulse Rate 75 72 Respiratory 16 16 Rate Blood Pressure 124/74 118/68 O2 Sat by Pulse 96 97 Oximetry Medical Decision Making - Medical Decision Making Medical decision making; white count is 9 hemoglobin 13 hematocrit 39. Potassium 4.5 with a BUN 14 creatinine 0.9 and GFR greater than 60. The patient 's drug triage was positive for opiates. The patient reports she's not taking an opiate for a month. She also denied drinking any alcohol her breath alcohol level was 0.16. When it is re-checked at approximately 9 PM EPS will be notified for consultation. X-ray of the left shoulder was done and reviewed by radiologist his impression is; no fracture or dislocation. There is a screw related to reconstructive surgery at the greater tuberosity of the humerus. Glenohumeral joint is intact. There is some widening of the before meals joint space. This could be postsurgical. Impression; previous surgery. There is a partial resection of the lateral and of the clavicle. No acute bony abnormality. Surgery is new compared to old exam. As read by Dr. Asif CT the brain and cervical spine were done and reviewed by radiologist his findings and impression; negative CT of the skin of the brain. moderate spondylosis of in the cervical spine. No fractures. As read by Dr. Asif Patient was evaluated psychiatric nurse in the plant this time patient be discharged home. The patient is laughing and stating that she is not suicidal. Agrees to follow up with [facility] tomorrow in the morning. Denying thoughts of hurting herself. - Lab Data Result diagrams: 05/01/16 18:50 05/01/16 18:50 Lab Results 05/01/16 05/01/16 05/01/16 Range/Units 18:50 18:50 18:50 WBC 9.0 (3.8-10.6) k/uL RBC 3.89 (3.80-5.40) m/uL Hgb 13.4 (11.4-16.0) gm/dL Hct 39.3 (34.0-46.0) % MCV 101.0 H (80.0-100.0) fL MCH 34.4 (25.0-35.0) pg MCHC 34.1 (31.0-37.0) g/dL RDW 12.9 (11.5-15.5) % Plt Count 238 (150-450) k/uL Neutrophils % 74 % Lymphocytes % 20 % Monocytes % 4 % Eosinophils % 1 % Basophils % 0 % Neutrophils # 6.6 (1.3-7.7) k/uL Lymphocytes # 1.8 (1.0-4.8) k/uL Monocytes # 0.4 (0-1.0) k/uL Eosinophils # 0.1 (0-0.7) k/uL Basophils # 0.0 (0-0.2) k/uL Sodium 132 L (137-145) mmol/L Potassium 4.5 (3.5-5.1) mmol/L Chloride 97 L (98-107) mmol/L Carbon Dioxide 28 (22-30) mmol/L Anion Gap 7 mmol/L BUN 14 (7-17) mg/dL Creatinine 0.90 (0.52-1.04) mg/dL Est GFR (MDRD) Af Amer >60 (>60 ml/min/1.73 sqM) Est GFR (MDRD) Non-Af >60 (>60 ml/min/1.73 sqM) Glucose 80 (74-99) mg/dL Calcium 8.8 (8.4-10.2) mg/dL Salicylates <1.0 mg/dL Urine Opiates Screen Detected H (NotDetected) Ur Oxycodone Screen Not Detected (NotDetected) Urine Methadone Screen Not Detected (NotDetected) Ur Propoxyphene Screen Not Detected (NotDetected) Acetaminophen <10.0 ug/mL Ur Barbiturates Screen Not Detected (NotDetected) U Tricyclic Antidepress Not Detected (NotDetected) Ur Phencyclidine Scrn Not Detected (NotDetected) Ur Amphetamines Screen Not Detected (NotDetected) U Methamphetamines Scrn Not Detected (NotDetected) U Benzodiazepines Scrn Not Detected (NotDetected) Urine Cocaine Screen Not Detected (NotDetected) U Marijuana (THC) Screen Not Detected (NotDetected) Disposition Clinical Impression: Chronic depression, Fall, Alcoholism Disposition: HOME SELF-CARE Condition: Stable Instructions: Fall Prevention for Older Adults (ED), Depression (ED), Anxiety ( ED) Additional Instructions: . All opiates, no alcohol use. Follow-up with your family physician and community mental health. Return emergency room as needed Time of Disposition: 23:42
[2016-05-01 19:06] LABS: Basophils % (A) 0 %; CH 34.1; CHCM 33.9; Eosinophils # (A) 0.1 k/uL (0-0.7); Eosinophils % (A) 1 %; HCT 39.3 % (34.0-46.0); HDW 2.02; HGB 13.4 gm/dL (11.4-16.0); Luc # (Auto) 0.11; Luc % (Auto) 1; Lymphocytes # (A) 1.8 k/uL (1.0-4.8); Lymphocytes % (A) 20 %; MCH 34.4 pg (25.0-35.0); MCHC 34.1 g/dL (31.0-37.0); Mean Platelet Volume 6.2; Monocytes # (A) 0.4 k/uL (0-1.0); Monocytes % (A) 4 %; Neutrophils # (A) 6.6 k/uL (1.3-7.7); Neutrophils % (A) 74 %; RBC 3.89 m/uL (3.80-5.40); RDW 12.9 % (11.5-15.5); WBC (Perox) 9.17
--- NOTE | 2016-05-01 19:25 | XR ---
EXAMINATION TYPE: XR shoulder complete LT DATE OF EXAM: 05/01/2016 7:16 PM COMPARISON: 05/15/2014 HISTORY: Shoulder pain. Fall. TECHNIQUE: 3 views FINDINGS: I see no fracture nor dislocation. There is a screw related to reconstructive surgery at th e greater tuberosity of the humerus. Glenohumeral joint is intact. There is some widening of the AC j oint space. This could be postsurgical. IMPRESSION: Previous surgery. There is partial resection of the lateral and of the clavicle. No acute bony abnormality. Surgery is new compared to old exam.
[2016-05-01 19:28] LABS: Acetaminophen <10.0 ug/mL; Anion Gap 7 mmol/L; Blood Urea Nitrogen 14 mg/dL (7-17); Calcium 8.8 mg/dL (8.4-10.2); Carbon Dioxide 28 mmol/L (22-30); Chloride 97 mmol/L (98-107); Glucose 80 mg/dL (74-99); Non-African American GFR(MDRD) >60 (>60 ml/min/1.73 sqM); Potassium 4.5 mmol/L (3.5-5.1); Salicylate <1.0 mg/dL; Sodium 132 mmol/L (137-145)
--- NOTE | 2016-05-01 19:37 | CT ---
EXAMINATION TYPE: CT brain taylor gimenez con DATE OF EXAM: 05/01/2016 7:18 PM COMPARISON: NONE HISTORY: Multiple falls recently Neck pain. Headache. CT DLP: 1333.6 mGycm Automated exposure control for dose reduction was used. TECHNIQUE: CT scan of the head and cervical spine are performed without contrast. FINDINGS: The ventricles of normal size. There is no mass effect nor midline shift. There is no sig n of intracranial hemorrhage. Calvarium is intact. There is mild straightening of the cervical spine. There is moderate narrowing at C5-6 C6-7 disc spac es with spurring of the endplates. The posterior elements are intact. Skull base is intact. There is no evidence of a fracture. IMPRESSION: Negative CT scan of the brain. Moderate spondylosis in the lower cervical spine. No fracture.
[2016-05-02 00:09] VITALS: BP 128/74; PULSE 71; TEMP 98
== END 2016-05-02 00:07 | disposition home or self-care (01) ==
LOC: EC 17:46
DX: F32.9 Major depressive disorder, single episode, unspecified (principal); F10.20 Alcohol dependence, uncomplicated; M19.90 Unspecified osteoarthritis, unspecified site; M81.0 Age-related osteoporosis without current pathological fracture; F41.9 Anxiety disorder, unspecified; F17.200 Nicotine dependence, unspecified, uncomplicated; Z79.01 Long term (current) use of anticoagulants; Z86.711 Personal history of pulmonary embolism; Z79.899 Other long term (current) drug therapy; Y90.0 Blood alcohol level of less than 20 mg/100 ml; W18.30XA Fall on same level, unspecified, initial encounter
CPT/HCPCS: 36415; 70450; 72125; 80048; 80306; 82075; 83520; 85025; 99285

== ENCOUNTER 2016-05-21 21:49 | Emergency (ER) | payer OTHER ==
[2016-05-21 21:54] VITALS: BP 161/91; PULSE 89; RESP 14; TEMP 97.7
--- NOTE | 2016-05-21 22:05 | ED ---
General Adult HPI - General Stated complaint: FALL Time Seen by Provider: 05/21/16 21:51 Source: patient, EMS, RN notes reviewed, old records reviewed Mode of arrival: EMS - History of Present Illness Initial comments: Chief complaint and history of present illness a 60-year-old female who is missing the emergency room several times this past several weeks. Several weeks ago she was here complaining about tingling to her feet which starts usually in the morning after she eats it goes away. She was at that time complaining of depression associated with the chronic pain pill abuse and alcoholism. Patient did drink today. She fell injuring her left shoulder. Denies any head injury. - Related Data Home Medications Medication Instructions Recorded Confirmed Calcium Carbonate [Calcium] 600 mg PO BID 05/03/15 05/01/16 Ergocalciferol [Vitamin D2 50,000 unit PO TH 05/03/15 05/01/16 (DRISDOL)] Multivitamins, Thera [Multivitamin] 1 tab PO DAILY 05/03/15 05/01/16 Apixaban [Eliquis] 2.5 mg PO BID 01/31/16 05/01/16 Cyanocobalamin [Vitamin B-12] 500 mcg PO DAILY 01/31/16 05/01/16 traZODone HCL 100 mg PO HS PRN 01/31/16 05/01/16 Folic Acid 1 mg PO DAILY 04/18/16 05/01/16 PARoxetine HCL [Paxil] 20 mg PO HS 04/18/16 05/01/16 Albuterol Sulfate [Proair Hfa] 2 puff INHALATION RT-Q6H PRN 04/27/16 05/01/16 Previous Rx's Medication Instructions Recorded Ipratropium-Albuterol Nebulize 3 ml INHALATION RT-Q4H PRN #2 04/19/16 [Duoneb 0.5 mg-3 mg/3 ml Soln] ampul.neb Allergies Allergy/AdvReac Type Severity Reaction Status Date / Time No Known Allergies Allergy Verified 05/01/16 18:31 Review of Systems ROS Statement: Those systems with pertinent positive or pertinent negative responses have been documented in the HPI. Review of systems. Patient denies any headache or neck pain at this time. She states she has been drinking today. Complains of left shoulder pain. No chest pain shortness of breath this time though she does have emphysema. No abdominal pain. Chronic on-again off-again tingling sensation to her feet. Usually stop after she eats something. Patient denies diabetes or other problems at this time. Patient is cachectic. All systems are reviewed Past medical problems PE, on L [place]. Again did not bump her head was a loss of consciousness today. She has emphysema, drink alcohol to excesswine. her surgeries include rotator cuff left shoulder, appendectomy, bilateral tubal ligation, a compound fracture of the right ankle which she reports having had 5 surgeries to repair. Family history brain cancer. 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 History of bipolar depression and anxiety. .Patient denies ALLERGIES. History of depression . Denying suicidal thoughts this time. She does smoke she was strongly encouraged to stop. Drinks alcohol daily. Patient is an alcoholic. ROS Other: All systems not noted in ROS Statement are negative. Past Medical History Past Medical History: Asthma, COPD, GERD/Reflux, Hyperlipidemia, Pneumonia, Pulmonary Embolus (PE), Respiratory Disorder Additional Past Medical History / Comment(s): ARHTRITIS RT HIP, MIGRAINES, left rotator cuff chronic, Osteoporosis History of Any Multi-Drug Resistant Organisms: None Reported Past Surgical History: Appendectomy, Orthopedic Surgery, Tubal Ligation Additional Past Surgical History / Comment(s): RT ANKLE COMPOUND FX/ DISLOCATION HAS X3 SX TO CORRECT, NO METAL LEFT IN PLACE, RT ROTATOR CUFF, RT KNEE BONE FRAGMENT REMOVED. Laser surgery on right rotator cuff., left rotator cuff and bone spur surgery Past Anesthesia/Blood Transfusion Reactions: No Reported Reaction Past Psychological History: Anxiety, Bipolar, Depression Additional Psychological History / Comment(s): NOT CURRENTLY TAKING ANY MEDS FOR LAST 4-5 YEARS. Smoking Status: Current every day smoker Past Alcohol Use History: None Reported Additional Past Alcohol Use History / Comment(s): STARTED SMOKING AT AGE 26, Past Drug Use History: None Reported - Past Family History Brother(s) Family Medical History: Cancer Father Family Medical History: Cancer, Coronary Artery Disease (CAD), Hyperlipidemia Additional Family Medical History / Comment(s): AT AGE 83, BRAIN CA.. AT AGE 81 DID A QUAD BYPASS. Mother Family Medical History: Dementia, Diabetes Mellitus Additional Family Medical History / Comment(s): AT AGE 74 General Exam - General Exam Comments Initial Comments: General: The patient is awake and alert, complains of left shoulder pain states she has again had tingling and discomfort to her feet which causes her to fall. She also admits that she was drinking alcohol today. No complaints of headache or neck pain denies bumping her head. Temp 97.7 pulse 89 respiratory rate 14 with a pulse ox 96% room air blood pressure 161/91. Elevated systolic and diastolic noted. Patient will be referred back to her family physician. She is also intoxicated and has some discomfort to her shoulder after falling. Eye: Pupils are equal, round and reactive to light, extra-ocular movements are intact ; there is normal conjunctiva bilaterally. No signs of icterus. Ears, nose, mouth and throat: There are moist mucous membranes and no oral lesions. Denies bump or pain to her head or neck. Neck: The neck is supple, there is no tenderness , no neck pain. Cardiovascular: There is a regular rate and rhythm. No murmur, rub or gallop is appreciated. Respiratory: Lungs are clear to auscultation, respirations are non-labored, breath sounds are equal. No wheezes, stridor, rales, or rhonchi. Gastrointestinal: Soft, non-distended, non-tender abdomen without masses or organomegaly noted. There is no rebound or guarding present. No CVA tenderness. Bowel sounds are unremarkable. Back: There is no tenderness to palpation in the midline. There is no obvious deformity. No rashes noted. Musculoskeletal: The patient is quite thin. Complains of pain to the left shoulder. Unable to raise her shoulder when requested but when asked to raise her elbow she was able to abduct the elbow to approximately 110. Obviously using and bending her shoulder at the same time. Neurovascular status to hands intact. Neurological: Feet were examined no evidence of any rashes or change in color vascular status appears intact, feet are warm to touch. Able to wiggle her toes. Complains pain to the right ankle where she had a previous comes out fracture and she states 5 surgeries repair the injury. Skin: The patient is on L [place]quist in our some ecchymotic areas. No open wounds. Psychiatric: Patient appears to be answering questions slowly does admit to having had wine today also reports that she has a past history of alcoholism and narcotic abuse. Course Vital Signs 05/21/16 21:50 Temperature 97.7 F Pulse Rate 89 Respiratory 14 Rate Blood Pressure 161/91 O2 Sat by Pulse 96 Oximetry Medical Decision Making - Medical Decision Making Patient pulled her IV out walk to the bathroom in the waiting room called a taxi and left emergency room without telling anybody she was doing this. This information comes from the guard. Reportedly had no difficulty ambulating Disposition Clinical Impression: Left against medical advice, Left shoulder pain Disposition: Left Against Medical Advice Condition: Fair Instructions: Fall Prevention for Older Adults (ED) Additional Instructions: Follow-up with your family physician or return to emergency room any time Referrals: None,Stated [Primary Care Provider] - 1-2 days Time of Disposition: 00:14
--- NOTE | 2016-05-21 22:11 | XR ---
EXAMINATION TYPE: XR shoulder complete LT DATE OF EXAM: 05/21/2016 10:04 PM CLINICAL HISTORY: History of fall left shoulder pain. COMPARISON: 05/01/2016 TECHNIQUE: Three views of the left shoulder are obtained. FINDINGS: There are postsurgical changes in the left shoulder with resection of lateral/distal portio n of left clavicle. A metallic screw is noted superimposing the left humerus greater tuberosity. Mild degenerative changes are suggested in the left shoulder joint. No definite acute fracture is noted i n the left shoulder. Soft tissues appear grossly unremarkable. Visualized left ribs and lungs appear grossly unremarkable. IMPRESSION: 1. No definite acute fracture or dislocation of the left shoulder. 2. Postsurgical changes in the left shoulder. 3. No significant interval change. ICD 10 NO FRACTURE, INITIAL EVALUATION
== END 2016-05-22 00:30 | disposition left against medical advice (07) ==
LOC: EC 21:49
DX: M25.512 Pain in left shoulder (principal); F41.9 Anxiety disorder, unspecified; F32.9 Major depressive disorder, single episode, unspecified; F10.20 Alcohol dependence, uncomplicated; F17.200 Nicotine dependence, unspecified, uncomplicated; Z86.711 Personal history of pulmonary embolism; Z79.01 Long term (current) use of anticoagulants; Z79.899 Other long term (current) drug therapy
CPT/HCPCS: 82075; 99284